=== PATIENT | male | born 1985 | race Two or more races ===

== ENCOUNTER 2018-12-29 11:21 | Emergency (ER) | payer OTHER ==
[~2018-12-29] VITALS: Ht 180.3 cm; Wt 127.0 kg
[2018-12-29] MEDS ORDERED: LISINOPRIL-HCT1 EAC2 PO (15:33)
[2018-12-29] MEDS ORDERED: ASA81 MG PO (15:36)
== END 2018-12-29 16:35 | disposition home or self-care (01) ==
LOC: ER 11:21
DX: R00.2 Palpitations (principal)

== ENCOUNTER 2020-04-29 07:11 | Emergency (ER) | payer OTHER ==
[~2020-04-29] VITALS: Ht 180.3 cm; Wt 127.0 kg
[~2020-04-29 07:11] MED LIST: ASA81 MG PO; LISINOPRIL-HCT1 EAC2 PO
== END 2020-04-29 13:01 | disposition home or self-care (01) ==
LOC: ER 07:11
DX: M94.0 Chondrocostal junction syndrome [Tietze] (principal); R07.89 Other chest pain

== ENCOUNTER 2021-06-11 06:00 | Day surgery (SDC) | payer OTHER ==
[2021-06-11] MEDS ORDERED: NEXIUM 24HR20 MG PO (09:15)
[2021-06-11] MEDS ORDERED: CARAFATE1 GM/10 ML PO (09:15)
== END 2021-06-11 11:00 | disposition home or self-care (01) ==
LOC: AMB-ENDOS 06:00
PROVIDERS: ATTEND Surgery
DX: K21.00 Gastro-esophageal reflux disease with esophagitis, without bleeding (principal); K44.9 Diaphragmatic hernia without obstruction or gangrene; K29.80 Duodenitis without bleeding

== ENCOUNTER → 2022-12-03 | Emergency (ER) | payer OTHER ==
[~2022-12-03] VITALS: Ht 180.3 cm; Wt 133.4 kg
[~2022-12-03] MED LIST changes: +CARAFATE1 GM/10 ML PO; +INTESTINEX680 M1 PO; +NEXIUM 24HR20 MG PO; +PEPCID AC20 MG PO; +ZOFRAN8 MG PO
== END | disposition home or self-care (01) ==
LOC: ER 09:55
DX: K52.9 Noninfective gastroenteritis and colitis, unspecified (principal); E86.0 Dehydration; Z20.822 Contact with and (suspected) exposure to COVID-19; K76.0 Fatty (change of) liver, not elsewhere classified; I10 Essential (primary) hypertension